=== PATIENT | female | born 1990 | race Caucasian/White ===

== ENCOUNTER → 2017-06-07 | Outpatient (CLI) | payer OTHER ==
[~2017-06-07] MED LIST: MACR100C37 PO; PHEN-426 PO; Z.0.NO CURRENT MEDS
== END ==
LOC: HPND 09:10
DX: O99.322 Drug use complicating pregnancy, second trimester (principal); O28.0 Abnormal hematological finding on antenatal screening of mother
CPT/HCPCS: 36415; 76811

== ENCOUNTER → 2017-07-05 | Outpatient (CLI) | payer OTHER, MEDICAID | LOC: HPND 08:06 | DX: O28.0 Abnormal hematological finding on antenatal screening of mother (principal); O99.322 Drug use complicating pregnancy, second trimester | CPT/HCPCS: 76816; 76825; 76827; 93325 ==